=== PATIENT | female | born 1960 | race Caucasian/White ===

== ENCOUNTER → 2019-10-28 08:30 | Outpatient (BNVA) | payer SELFPAY | PROVIDERS: Family Provider Family Medicine; PCP Family Medicine; Visit Provider Family Medicine | DX: I10 Essential (primary) hypertension (principal); E03.9 Hypothyroidism, unspecified; Z72.0 Tobacco use; Z13.220 Encounter for screening for lipoid disorders; Z13.6 Encounter for screening for cardiovascular disorders | CPT/HCPCS: 80053; 80061; 84439; 84443; 84481 ==

== ENCOUNTER → 2020-11-01 14:42 | Outpatient (BNVA) | payer SELFPAY | PROVIDERS: Family Provider Family Medicine; PCP Family Medicine; Visit Provider Family Medicine | DX: E03.9 Hypothyroidism, unspecified (principal); I10 Essential (primary) hypertension | CPT/HCPCS: 80048; 84439; 84443; 84481 ==

== ENCOUNTER → 2021-02-12 09:25 | Outpatient (BNVA) | payer SELFPAY | PROVIDERS: Family Provider Family Medicine; PCP Family Medicine; Referring Provider Family Medicine; Visit Provider Family Medicine | DX: E03.9 Hypothyroidism, unspecified (principal); I10 Essential (primary) hypertension | CPT/HCPCS: 80048; 84439; 84443; 84481 ==

== ENCOUNTER → 2021-08-27 10:58 | Outpatient (BNVA) | payer SELFPAY | PROVIDERS: Family Provider Family Medicine; PCP Family Medicine; Visit Provider Family Medicine | DX: J44.9 Chronic obstructive pulmonary disease, unspecified (principal); I10 Essential (primary) hypertension; E03.9 Hypothyroidism, unspecified; Z13.6 Encounter for screening for cardiovascular disorders; Z13.220 Encounter for screening for lipoid disorders | CPT/HCPCS: 80061; 84439; 84443; 84481; 85025 ==

== ENCOUNTER → 2022-08-20 09:08 | Outpatient (BNVA) | payer SELFPAY | PROVIDERS: Family Provider Family Medicine; PCP Family Medicine; Visit Provider Family Medicine | DX: I10 Essential (primary) hypertension (principal); E03.9 Hypothyroidism, unspecified; Z13.220 Encounter for screening for lipoid disorders; Z13.6 Encounter for screening for cardiovascular disorders; Z72.0 Tobacco use; Z68.29 Body mass index [BMI] 29.0-29.9, adult | CPT/HCPCS: 80053; 80061; 84443 ==

== ENCOUNTER → 2023-09-03 08:31 | Outpatient (BNVA) | payer SELFPAY | PROVIDERS: Family Provider Family Medicine; PCP Family Medicine; Visit Provider Family Medicine | DX: I10 Essential (primary) hypertension (principal); E03.9 Hypothyroidism, unspecified | CPT/HCPCS: 80053; 80061; 84439; 84443; 84481 ==

== ENCOUNTER → 2024-09-22 09:59 | Outpatient (BNVA) | payer SELFPAY | PROVIDERS: Family Provider Family Medicine; PCP Family Medicine; Visit Provider Family Medicine | DX: I10 Essential (primary) hypertension (principal); E03.9 Hypothyroidism, unspecified | CPT/HCPCS: 80053; 80061; 84439; 84443; 84481 ==

== ENCOUNTER 2024-09-27 15:14 | Outpatient (CLI) | payer SELFPAY ==
--- NOTE | 2024-09-27 15:26 | XRR_ITS ---
PROCEDURE INFORMATION: Exam: XR Left Knee Exam date and time: 09/27/2024 3:31 PM Age: 64 years old Clinical indication: Left knee pain and swelling x 3wk. Excruciating pain; No known trauma. Pain is all around the patella area. 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 Views: 3 views. COMPARISON: No relevant prior studies available. FINDINGS: Bones/joints: Minimal degenerative changes of the knee centered in the medial and patellofemoral compartments. No acute fracture. No evidence of osseous lesion. Soft tissues: Normal. XR/XR knee LT 3V* [id number] IMPRESSION: No acute findings.
--- NOTE | 2024-09-27 15:26 | XRR_ITS ---
PROCEDURE INFORMATION: Exam: XR Cervical Spine Exam date and time: 09/27/2024 3:31 PM Age: 64 years old Clinical indication: Radicular pain (radiculopathy); Cervical region; Left side neck pain that radiates and causes numbness and tinglingness in left arm x 7 months getting worse. HX of [facility]; Additional info: M54.12 - radiculopathy, cervical region TECHNIQUE: Imaging protocol: Radiologic exam of the cervical spine. Views: 2 or 3 views. COMPARISON: No relevant prior studies available. FINDINGS: Bones/joints: No acute fracture. Normal alignment. Moderate facet arthropathy throughout the cervical spine. Soft tissues: Unremarkable. XR/XR cervical spine 3V* [id number] IMPRESSION: No acute findings. Degenerative changes of the cervical spine.
== END 2024-09-27 15:15 | disposition home or self-care (01) ==
PROVIDERS: PCP Family Medicine; Visit Provider Family Medicine
DX: M54.12 Radiculopathy, cervical region (principal); M17.12 Unilateral primary osteoarthritis, left knee; M76.892 Other specified enthesopathies of left lower limb, excluding foot; M47.892 Other spondylosis, cervical region
CPT/HCPCS: 72040; 73562